=== PATIENT | female | born 1965 | race Caucasian/White ===

== ENCOUNTER 2021-01-03 15:43 | Outpatient (CLI) | payer OTHER, SELFPAY ==
--- NOTE | ~2021-01-03 | US_ITS ---
US retroperitoneal comp DATE: 01/03/2021 16:15 INDICATION: History of bilateral kidney stones TECHNIQUE: Real-time and color flow imaging of the kidneys and urinary bladder COMPARISON: 01/03/2021 KUB FINDINGS: The right kidney measures 9.1 cm length, without hydronephrosis. The left kidney measures approximately 10.2 cm length. Moderately prominent left hydronephrosis is noted. Possible bilateral renal calculi. The urinary bladder is unremarkable. IMPRESSION: Moderately prominent left hydronephrosis Reviewed, dictated and finalized at Location A. Reviewed, dictated and finalized at location A.
--- NOTE | ~2021-01-03 | XR_ITS ---
XR abdomen/kub 1V DATE: 01/03/2021 16:20 INDICATION: History of kidney stone. Hematuria. No pain. TECHNIQUE: AP projection, 2 views COMPARISON: 01/03/2021 retroperitoneal ultrasound examination FINDINGS: Calcific densities overlie the right and left renal silhouettes. There is a 4.5 x 9.9 mm calcification overlying the left ureter at the L4 level, possibly a left uret eral calcified calculus. Hydronephrosis of the left kidney is demonstrated on 01/03/2021 ultrasound ex amination. Approximately 3.8 cm calcified uterine fibroid. The bowel gas pattern is nonspecific, without evidence of obstruction. Included skeletal structures are unremarkable other than mild degenerative change and levoscoliosis o f the thoracolumbar spine. IMPRESSION: Possible 4.5 x 9.9 mm left ureteral calcified calculus at L4 level; left hydronephrosis Suggestion of bilateral renal calcified calculi; noncontrast CT abdomen pelvis examination would be m ore accurate for detection of urinary tract calculi. Reviewed, dictated and finalized at Location A. Reviewed, dictated and finalized at location A. IMPRESSION: Possible 4.5 x 9.9 mm left ureteral calcified calculus at L4 level; left hydronephrosis Suggestion of bilateral renal calcified calculi; noncontrast CT abdomen pelvis examination would be more accurate for detection of urinary tract calculi.
== END 2021-01-03 15:44 | disposition home or self-care (01) ==
PROVIDERS: PCP Emergency Medicine; Visit Provider Urology
DX: N20.0 Calculus of kidney (principal)
CPT/HCPCS: 74018; 76770

== ENCOUNTER 2021-02-15 13:54 | Outpatient (CLI) | payer OTHER, SELFPAY ==
--- NOTE | ~2021-02-15 | XR_ITS ---
XR abdomen/kub 1V 02/15/2021 14:19 Indication: Left ureteral stone. Hematuria. Procedure: KUB Comparison: 01/03/2021 Findings: There is a 9 x 5 mm calcification overlying the left L4 transverse process, likely ureteral stone. No significant change to position compared with prior study. There are bilateral renal stones . Bowel gas pattern is nonobstructive. There is moderate colonic fecal loading. There is a amorphous calcification in the pelvis, likely calcified uterine fibroid. Probable bone island in the left ilium . Impression: 1: Probable proximal left ureteral stone at the L4 level measuring 9 x 5 mm. 2: Bilateral nephrolithiasis. Reviewed, dictated and finalized at location A. Impression: 1: Probable proximal left ureteral stone at the L4 level measuring 9 x 5 mm. 2: Bilateral nephrolithiasis.
== END 2021-02-15 13:55 | disposition home or self-care (01) ==
PROVIDERS: PCP Emergency Medicine; Visit Provider Urology
DX: N20.2 Calculus of kidney with calculus of ureter (principal)
CPT/HCPCS: 74018

== ENCOUNTER 2021-02-26 13:19 | Outpatient (CLI) | payer OTHER, SELFPAY ==
--- NOTE | ~2021-02-26 | XR_ITS ---
EXAMINATION: XR chest 2V 02/26/2021 13:40 INDICATION: Preop. Asthma. PROCEDURE: 2 view chest COMPARISON: No prior studies for comparison. FINDINGS: The lungs are clear. The cardiomediastinal silhouette is within normal limits. There are no pleural effusions. There is no pneumothorax suspected. IMPRESSION: 1: NO ACUTE CARDIOPULMONARY DISEASE. Reviewed, dictated and finalized at location A. P TECHNOLOGIST
== END 2021-02-26 13:20 | disposition home or self-care (01) ==
PROVIDERS: PCP Emergency Medicine; Visit Provider Emergency Medicine
DX: Z01.818 Encounter for other preprocedural examination (principal); J45.909 Unspecified asthma, uncomplicated
CPT/HCPCS: 71046

== ENCOUNTER → 2021-03-03 02:43 | Outpatient (CLI) | payer OTHER, SELFPAY ==
[2021-03-03 18:23] LABS: SARS-CoV-2 RNA PCR Negative
== END ==
PROVIDERS: PCP Emergency Medicine; Visit Provider Urology
DX: Z01.812 Encounter for preprocedural laboratory examination (principal); Z20.822 Contact with and (suspected) exposure to COVID-19
CPT/HCPCS: C9803; U0003; U0005

== ENCOUNTER 2021-03-06 01:57 | Day surgery (SDC) | payer OTHER, SELFPAY ==
[2021-03-04 11:05] VITALS: BMI 31.6
--- NOTE | 2021-03-04 11:24 | PC.NURSE ---
Report to the Outpatient Waiting Room, entrance under the green pavilion located off [facility], at time __0845_ on date 03-06-21_. OR Time: ___1044_. - You and your visitor will be asked a series of questions to screen for COVID 19 for your protection. - A mask is required within the hospital. - Only one visitor is allowed at this time. Patient visitors will be guided where to wait when not with patient. Preoperative COVID Testing Requirements: No COVID Test needed if: (proof is required; if not received patient will have Rapid Test prior to entry) - Patient has received COVID Vaccine at least 14 days prior to procedure date or - Patient has positive COVID test result within last 90 days of surgery date. COVID Test needed if above criteria is not met If not COVID vaccinated a COVID test must be conducted within 72 hours of surgery and patient is asked to isolate self from time of testing until procedure. You will go to the [facility] for your COVID testing. The [facility] site is located at the corner of [address] [facility]. You will only be called if COVID results are positive and your surgeon may reschedule your elective surgery date. Patients may have clear liquids (water, carbonated beverages, clear teas, apple juice) until 3 hours prior to surgery with a maximum of 20 ounces. - No food from midnight until time of surgery - Infants may have breast milk until 4 hours before surgery, formula 6 hours prior to surgery. - Children will be allowed to drink immediately following surgery. If applicable, please bring a bottle or sippy cup to assist with drinking. Juice, water, soda, and popsicles are readily available. For infants on formula, please bring formula the day of surgery. Pacifiers are allowed. Take the following medications with a SIP of water the morning of surgery: Medications to discontinue per physician Date to take last dose Please no make-up, nail yi, hairspray, perfume, deodorant, or body powder the day of surgery. No jewelry (including any body piercings) or valuables the day of surgery, leave them at home. Please take a shower or bath the night before, or the morning of, surgery with an antibacterial soap. Wear comfortable, loose fitting clothing. Children are encouraged to wear pajamas. - Jewelry must be removed prior to entering the operating room. Rings and piercings that are not removed may be cut off. - The hospital will not accept responsibility for valuables. - Please leave all valuables, including medications, at home the day of surgery. If you are going home after surgery, a licensed trash collector truck driver must drive you home. - NO public transportation without another adult. - We recommend that an adult stay with you for 24 hours following discharge. - We also recommend that you do not drive, make important decision, drink alcoholic beverages, or take any drugs that were not prescribed by your health care provider for at least 24 hours after your discharge time. For Pediatric surgeries, we recommend two adults accompany the child home (only one inside the building at this time). Follow any additional instructions given to you from your surgeon. Telephone instructions given to __Patient__and asked if any additional questions and then verbalized understanding. Patient advised to call surgeon office or pre surgery nurse liaison [phone] if any additional questions.
[2021-03-06] VITALS (8 sets, daily range): BP systolic 97–146; BP diastolic 61–84; PULSE 60–121; RESP 12–20; TEMP 36.3–36.6; O2SAT 96–100
--- NOTE | ~2021-03-06 | XR_ITS ---
EXAMINATION: XR retrograde pyelo w/stent LT EXAM DATE: 03/06/2021 11:20 INDICATION: Left-sided stone extraction, retrograde pyelogram. TECHNIQUE: Fluoroscopy used during XR retrograde pyelo w/stent LT performed by Dr. King Paniagua MD, urologist. The radiologist Brice Oviedo M.D. dictating this report of the image(s) available wa s not present for the procedure. Total fluoroscopic time of 107 seconds. The DAP for this procedure was 1.9 mGym2. A total of 4 images sent to PACS from the exam. FINDINGS: Left ureter was cannulated, injected. There is left hydronephrosis. A double-J ureteral st ent was placed. Correlate with procedure note. IMPRESSION: Fluoroscopy used during XR retrograde pyelo w/stent LT. Reviewed, dictated and finalized at location B. IUM CARD CANCELLATION CLERK
[2021-03-06] MEDS: LACTATED RINGERS 1,000 ML 30 ML IV CONT ×2 (09:26→11:38)
--- NOTE | 2021-03-06 09:51 | P.PNAN_ITS ---
Anes - Initial Pre Proc Eval Procedure: Operation Date: 03/06/21 10:45 Proposed Procedures p Cystoscopy, Left Ureteroscopy with Left Ureteral Stone Extraction, Possible Left Stent Placement - King Paniagua MD s Laser Lithotripsy - King Paniagua MD Date/Time: 03/06/21 09:51 Surgeon: King Paniagua MD Pre Op Diagnosis: Lt Ureteral Stones Patient Data Age: 55 Gender: F Height: 1.6 m Weight: 80.9 kg Allergies Allergy/AdvReac Type Severity Reaction Status Date / Time latex Allergy Severe Anaphylactic Verified 03/04/21 11:38 Shock azithromycin Allergy Intermediate Difficulty Verified 03/04/21 11:38 [From Zithromax Z-Eloy] Breathing adhesive tape Allergy Mild Rash Verified 03/04/21 11:38 amoxicillin Allergy Mild Rash Verified 03/04/21 11:38 aspirin Allergy Mild Rash Verified 03/04/21 11:38 ibuprofen [From Motrin] Allergy Mild Itching Verified 03/04/21 11:02 codeine AdvReac Mild Nausea and Verified 03/04/21 11:38 Vomiting morphine AdvReac Mild Nausea and Verified 03/04/21 11:38 Vomiting Home Medications Medication Instructions Recorded Confirmed Type loratadine 10 mg tablet 10 mg PO DAILY 10/15/20 03/06/21 History melatonin 10 mg capsule 10 mg PO QHS 10/15/20 03/06/21 History cholecalciferol (vitamin D3) 125 mcg PO 3XW 03/04/21 03/06/21 History [Vitamin D3] d-mannose 500 mg PO DAILY 03/04/21 03/06/21 History vit A-vit C-vit [id number] [Eye 1 tablet PO DAILY 03/04/21 03/06/21 History Vitamin and Minerals] Patient hx anesthesia problems: none Family hx anesthesia problems: none Results Review: All pre-operative results and documents have been reviewed as part of the pre-operative evaluation. [facility] Past Medical History Medical History (Updated 03/06/21 @ 09:52 by Pravin Arceo MD) Anxiety Arthritis Asthma Insomnia Kidney stones Moderate left ankle sprain Sinus arrhythmia Family History Family History Other Arthritis Depression Diabetes mellitus Heart disease Hypertension Social History Social History Smoking status: Never smoker Alcohol intake: never Substance use: never Living arrangements: with family Gender identity (if verbalized by the patient): Female Spiritual care concerns: No Anes - Eval Final PreProcedure Day of Procedure 03/06/21 09:51 Patient weight: obese Heart: regular rate and rhythm Lungs: clear to auscultation Airway: Mallampati scale class 1 Neurological: alert and oriented Last oral intake: >/= 8 hours Emergent: no Anesthetic plan: proceed Anesthesia type and monitoring: general LMA and standard monitoring Results Review: All pre-operative results and documents have been reviewed as part of the pre-operative evaluation. Informed Consent: The patient's anesthetic plan and its attendant risks and benefits were discussed with the patient/family/POA. Questions were solicited and answers provided to the satisfaction of the patient/family/POA.
--- NOTE | 2021-03-06 10:09 | WPDHPUPDATE1 ---
History and Physical Update Update Date/Time: 03/06/21 10:09 History and Physical has been reviewed, including an updated exam of the patient. There are NO changes in the patient's condition. Risks, benefits, and alternatives have been discussed and questions answered. Patient agrees to proceed with procedure.
[2021-03-06] MEDS: ceFAZolin 2 GM/D5W 50 ML 2 GM/50 ML BAG IVPB (10:23)
--- NOTE | 2021-03-06 11:28 | W.PM.PROC2 ---
Procedure Note - Detailed Date of Procedure 03/06/21 Pre-op Diagnosis Lt Ureteral Stones Post-op Diagnosis same Procedure Performed Cystoscopy, left ureteroscopy laser lithotripsy, stone extraction, retrograde pyelogram and stent placement Surgeon King Paniagua MD Anesthesia general Description of Procedure The patient was brought to the operative suite where she is prepped and draped in a routine sterile fashion while in the dorsal lithotomy position after the uneventful induction of a general LMA anesthetic. A 19F rigid cystoscope was placed in the bladder. The patient had no evidence of urethral stricture or bladder neck contracture. The bladder mucosa was endoscopically normal without hyperemia or neoplasm. There was a single, orthotopic ureteral orifice bilaterally. A 0.035 glidewire was advanced into the left renal pelvis under fluoroscopy. The distal ureter was dilated with an 8F/10F ureteral dilator. Ureteroscopy was undertaken with a short tapered semi-rigid ureteroscope. With ureteroscopy I fractured the 9mm left mid-uretral stone into smaller pieces using a 273micron Holmium laser fiber with the Holmium laser with a dusting technique. I was able to then extract all stone pieces using a 1.9F Escape, Nitinol, disposable stone basket. Due to the extent of this manipulation I did place a 4.8F double-J ureteral stent. A retropyelogram was obtained to insure proper stent positioning. The proximal coil of the stent was confirmed to be in the renal pelvis and the distal coil in the bladder. The patient's bladder was emptied and he was taken to the recovery room having tolerated this procedure well. Estimated Blood Loss 0 Drains Yes Packing No Pathology yes Complications No immediate complications Condition stable Disposition PACU
--- NOTE | 2021-03-06 11:57 | SUR.PHASEI ---
PT AWAKE AND ALERT. TALKATIVE. DENIES PAIN OR NAUSEA. STATES MILD BURNING WITH URINATION ONLY.
--- NOTE | 2021-03-06 12:03 | SUR.PHASEI ---
PT AWAKE AND ALERT. READY TO TRANSFER TO [facility]. VERY TALKATIVE. ALL QUESTIONS ANSWERED
== END 2021-03-06 13:44 | disposition home or self-care (01) ==
PROVIDERS: PCP Emergency Medicine; Visit Provider Urology
PROC: (CPT 52352; principal; 2021-03-06 10:45)
PROC: (CPT 52356; 2021-03-06 10:45)
DX: N13.2 Hydronephrosis with renal and ureteral calculous obstruction (principal); E66.9 Obesity, unspecified; Z68.32 Body mass index [BMI] 32.0-32.9, adult
CPT/HCPCS: 52356; 74420; 82365; 88300; A9270; C1758; C1769; C2617; J0690; J1100; J1170; J1200; J2250; J2405; J2704; J3010; J7120; Q9966

== ENCOUNTER → 2021-07-11 14:35 | Outpatient (CLI) | payer OTHER, SELFPAY ==
--- NOTE | ~2021-07-11 | US_ITS ---
EXAMINATION: US renal BI DATE: 07/11/2021 15:00 INDICATION: Left renal stone TECHNIQUE: Multiple ultrasound grayscale images of the kidneys were obtained. COMPARISON: 01/03/2021 FINDINGS: The right kidney measures 8.0 x 3.8 x 4.4 cm. The left kidney measures 9.2 x 4.4 x 4.8 cm. The kidney s demonstrate normal echogenicity. There is no hydronephrosis in either kidney. No stones identified . The bladder is normal. IMPRESSION: 1. Normal kidneys without hydronephrosis. Reviewed, dictated and finalized at location A.
== END ==
PROVIDERS: Visit Provider Urology
DX: N20.1 Calculus of ureter (principal)
CPT/HCPCS: 76775

== ENCOUNTER 2021-07-29 10:18 | Outpatient (CLI) | payer OTHER, SELFPAY ==
[2021-07-29 10:52] LABS: Basophils Percent Auto 0.5 % (0.2-1.2); Eosinophils Absolute Auto 0.3 K/mm3 (0-0.3); Eosinophils Percent Auto 3.9 % (0-4.4); Hematocrit 43.6 % (37.0-47.0); Immature Granulocyte Absolute 0.01 K/mm3 (0.00-0.031); Immature Granulocyte Percent A 0.2 % (0-0.5); Lymphocytes Absolute Auto 1.75 K/mm3 (0.9-3.2); Mean Corpuscular HGB Conc 32.1 g/dl (32-36); Mean Corpuscular Hemoglobin 28.3 pg (26-34); Mean Corpuscular Volume 88.1 fl (80-100); Mean Platelet Volume 10.5 fl (7.4-10.4); Monocytes Absolute Auto 0.5 K/mm3 (0.1-0.6); Monocytes Percent Auto 7.7 % (2.6-8.5); Neutrophils Absolute Auto 3.9 K/mm3 (1.3-6.7); Neutrophils Percent Auto 60.7 % (45.5-73.1); Platelet Count Result 280 k/mm3 (150-375); Red Blood Count 4.95 M/mm3 (4.2-5.4); Red Cell Distribution Width 14.6 % (11.5-14.5); White Blood Count 6.5 K/mm3 (4.5-10.0)
[2021-07-29 11:10] LABS: Alanine Aminotransferase 39 U/L (4-35); Albumin Level 4.4 g/dL (3.5-5.1); Alkaline Phosphatase 99 U/L (38-126); Anion Gap 5 mmol/L (8-16); Aspartate Amino Transferase 37 U/L (14-36); Bilirubin,Total 0.3 mg/dL (0.2-1.3); Blood Urea Nitrogen 15 mg/dL (7-17); Carbon Dioxide 26 mmol/L (22-30); Chloride 103 mmol/L (98-107); Cholesterol 232 mg/dL (0-200); Estimated Glomerular Filt Rate 58; Glucose 94 mg/dL (65-110); HDL Direct 49 mg/dL; Sodium 134 mmol/L (137-145); Triglycerides 90 mg/dL (<150)
[2021-07-29 11:20] LABS: LDL Cholesterol Direct 122 mg/dL
[2021-07-29 11:22] LABS: Erythrocyte Sedimentation Rate 18 mm/hr (0-20)
[2021-08-02 11:23] LABS: CRP, High Sensitivity 4.2 mg/L (***)
== END 2021-07-29 10:19 | disposition home or self-care (01) ==
LOC: ANHLAB 10:20
PROVIDERS: PCP Internal Medicine; Visit Provider Internal Medicine
DX: R51.9 Headache, unspecified (principal); E78.5 Hyperlipidemia, unspecified
CPT/HCPCS: 36415; 80053; 80061; 85025; 85652; 86141

== ENCOUNTER 2021-08-29 13:06 | Outpatient (CLI) | payer OTHER, SELFPAY ==
--- NOTE | 2021-08-29 | ECG_ITS ---
Measurements Intervals [place] Rate: 100 P: 35 MA: 140 QRS: 6 QRSD: 89 T: 33 QT: 343 QTc: 443 Interpretive Statements SINUS TACHYCARDIA BORDERLINE R WAVE PROGRESSION, ANTERIOR LEADS BORDERLINE T WAVE ABNORMALITY- ANTEROLAT/INF LEADS BORDERLINE ECG Electronically Signed On 08-29-2021 13:38:09 CDT by Jeovanny Sinha D.O.
== END 2021-08-29 13:07 | disposition home or self-care (01) ==
LOC: ANHCARD 13:09
PROVIDERS: PCP Internal Medicine; Visit Provider Internal Medicine
DX: R94.31 Abnormal electrocardiogram [ECG] [EKG] (principal)
CPT/HCPCS: 93005

== ENCOUNTER 2022-04-17 11:12 | Outpatient (CLI) | payer OTHER, SELFPAY ==
--- NOTE | ~2022-04-17 | US_ITS ---
Thyroid ultrasound. Clinical History: Thyroid nodules Findings: Real-time sonography of the thyroid gland was performed. The right lobe measures 5.2 x 1.7 x 1.4 cm. The left lobe measures 5.2 x 1.4 x 1.0 cm. The isthmus is 2 mm in AP diameter. There is an 8 mm cystic right thyroid lobe nodule with focal, colloid material at the midpole. There is a 9 mm hypoechoic solid nodule at the posterior right midpole, wider than tall. There is a 7 mm mixed solid and cystic nodule at the left mid to lower pole. Impression: Subcentimeter thyroid nodules, as detailed above. No further follow-up required.. Reviewed, dictated and finalized at location . FIC RATE CLERK Impression: Subcentimeter thyroid nodules, as detailed above. No further follow-up required ..
== END 2022-04-17 11:13 | disposition home or self-care (01) ==
PROVIDERS: PCP Internal Medicine; Visit Provider Internal Medicine
DX: E04.2 Nontoxic multinodular goiter (principal)
CPT/HCPCS: 76536

== ENCOUNTER 2022-04-21 09:58 | Outpatient (CLI) | payer OTHER, SELFPAY ==
--- NOTE | 2022-04-21 | ECHO_ITS ---
Patient Info Name: Rhea Lawrence Age: 56 years : 1965 Gender: Female Ht: 63 in Wt: 163 lbs BSA: 1.84 m2 HR: 98 bpm BP: 113 / 85 mmHg Heart Rhythm: Sinus Rhythm Exam Date: 04/21/2022 10:29 AM Exam Location: [facility] Patient Status: Outpatient Admit Date: 04/21/2022 Staff Ordering Physician: Reji, Kingston Trujillo MD Customer Relations Representative: Santosh Gao RDCS Attending Provider: Jay, Kingston Trujillo MD Referring Physician: Reji DENG; Exam Type: CA echo doppler color flow Study Info Indications I10 - Essential (primary) hypertension Complete two-dimensional, color flow and Doppler transthoracic echocardiogram is performed. Summary 1. Complete two-dimensional, color flow and Doppler transthoracic echocardiogram is performed. 2. Left ventricular chamber dimension is normal. 3. Left ventricular systolic function is normal, estimated at 60-65%. 4. The left ventricular diastolic function is grade I diastolic dysfunction. 5. Right ventricular systolic function is normal. 6. There is mild mitral valve regurgitation. 7. There is mild tricuspid valve regurgitation. Left Ventricle Left ventricular chamber dimension is normal. Left ventricular systolic function is normal, estimated at 60-65%. There is no increased left ventricular wall thickness. The left ventricular diastolic function is grade I diastolic dysfunction. Right Ventricle Right ventricular chamber dimension is normal. Right ventricular systolic function is normal. Left Atria Left atrial chamber dimension is normal. Right Atria Right atrial chamber dimension is normal. Atrial Septum Intact interatrial septum visualized by color flow imaging. Aortic Valve The aortic valve is trileaflet. There is no aortic valve stenosis. There is no aortic valve regurgitation. Pulmonic Valve The pulmonic valve is not well visualized. Mitral Valve The mitral valve has normal leaflets. There is mild mitral valve regurgitation. Tricuspid Valve The tricuspid valve leaflets are normal. There is mild tricuspid valve regurgitation. Pericardium/Pleural There is trivial pericardial effusion. Inferior Vena Cava Normal inferior vena cava with >50% collapse upon inspiration consistent with normal right atrial pressure. Aorta The aortic root size at the sinus of Valsalva is normal. Left Ventricular Outflow Tract Name Value Normal LVOT 2D LVOT Diameter 2.0 cm LVOT Doppler LVOT Peak Gradient 3 mmHg LVOT Mean Gradient 2 mmHg LVOT VTI 18 cm LVOT VTI/AV VTI Ratio 0.8 LVOT Stroke Volume 56 ml LVOT CO 4.0 l/min LVOT CI 2.2 l/min/m2 Mitral Valve Name Value Normal MV Doppler
== END 2022-04-21 09:59 | disposition home or self-care (01) ==
LOC: ANHCARD 10:00
PROVIDERS: PCP Internal Medicine; Visit Provider Internal Medicine Cardiovascular Disease
DX: I10 Essential (primary) hypertension (principal); R07.2 Precordial pain
CPT/HCPCS: 93306

== ENCOUNTER 2022-05-04 08:06 | Outpatient (CLI) | payer OTHER, SELFPAY ==
--- NOTE | 2022-06-02 13:46 | WPDHOMESLEEP ---
Sleep Study - Home Unattended Date of Study: 05/04/22 Ordering Provider: Opal Camara MD Interpreting Provider: Layne Hawk, DO Home Sleep Study Type: Watch PAT Height: 1.6 m Weight: 76.204 kg Body Mass Index: 29.7 Neck Circumference (inches): 13.5 [place]: 6 Reason for Sleep Study Insomnia Sleep History The patient is a 57-year-old female with insomnia, asthma, scoliosis, hyperlipidemia, GERD, anxiety and hypothyroidism that had a sleep study ordered by her primary care physician for evaluation of insomnia. The patient rarely awakens from sleep short of breath. She occasionally awakens at night with heartburn and coughing. She rarely snores and is never loud enough others complain. She frequently has trouble sleeping when she has a cold. She denies waking up gasping for air throughout the night. She denies having breathing problems at night observed by herself or others. She occasionally sweats excessively at night. She denies having heart palpitations or irregular heartbeats during the night. She rarely falls asleep during the day and never while driving. She denies sleep paralysis, cataplexy and hypnagogic / hypnopompic hallucinations. She frequently has trouble at work due to sleepiness. She denies feeling afraid of going to sleep. She rarely has nightmares and rarely remembers her dreams. She rarely has thoughts racing through her mind. She occasionally feels sad or depressed. She frequently has anxiety. She occasionally has muscular tension. She denies noticing parts of her body jerk. She denies kicking during the night. She denies having crawling and aching feelings in her legs as well as leg pain during the night. She rarely grinds her teeth during sleep but never awakens with morning jaw pain. She is frequently bothered by pain during the day but rarely awakened by pain during the night. She frequently wakes up feeling stiff in the morning. She denies waking up with sore achy muscles. She denies waking up with pain in the neck, spine and other joints. She goes to bed 11 p.m. on both weekdays and weekends. It can take her 30 minutes up to several hours to fall asleep. She wakes up 3-5 times throughout the night for unknown reasons. Sometimes she is unable fall asleep she wakes up 720 on weekdays and at 8:20 a.m. on the weekends. She typically gets 4-6 hours of sleep per night. She will stay in bed for a few minutes after waking up in the morning. She currently lives with her and 2 children. She denies consuming any caffeinated beverages within 2 hours of bedtime. She denies engaging in physical exercise before bedtime. She will watch television before falling asleep. She denies taking naps in the afternoon or the evening. She denies consuming caffeinated beverages throughout the day. She denies tobacco, alcohol and recreational drug use. [facility] Past Medical History Medical History (Updated 06/02/22 @ 13:59 by Layne Hawk DO) Anxiety Arthritis Asthma Inflammation of foot due to trauma Insomnia Kidney stones Moderate left ankle sprain Sinus arrhythmia Tendinitis of both feet Family History Family History Other Arthritis Depression Diabetes mellitus Heart disease Hypertension Social History Social History Smoking status: Never smoker Alcohol intake: never Substance use: never Living arrangements: with family Gender identity (if verbalized by the patient): Female Spiritual care concerns: No Medications Home Medications Medication Instructions Recorded Confirmed Type loratadine 10 mg tablet (Claritin) 10 mg PO DAILY 10/15/20 04/21/22 History melatonin 10 mg capsule 10 mg PO QHS 10/15/20 04/21/22 History cholecalciferol (vitamin D3) 125 125 mcg PO 3XW 03/04/21 04/21/22 History mcg (5,000 unit) tablet (Vitamin D3) horacio
[2022-06-02 13:55] VITALS: BMI 29.7
== END 2022-05-12 16:13 | disposition home or self-care (01) ==
LOC: ANHCSM 08:09
PROVIDERS: PCP Internal Medicine; Visit Provider Internal Medicine
DX: G47.00 Insomnia, unspecified (principal); G47.34 Idiopathic sleep related nonobstructive alveolar hypoventilation
CPT/HCPCS: 95800

== ENCOUNTER 2022-05-09 10:00 | Outpatient (CLI) | payer OTHER, SELFPAY ==
--- NOTE | ~2022-05-09 | DEXA_ITS ---
Bone Density Report Name: AFIA ADAMS Age: 56 Sex: Female Ethnicity: Hoa Date of : 1965 Indication: postmenopausal; screening for osteoporosis; Referring Provider: KENNEY NEVILLE Study: Bone densitometry was performed. Exam Date: May 09, 2022 Accession number: [id number] Bone Density: Region BMD T-score Z-score Classification AP Spine(L1-L4) 1.022 -0.2 0.8 Normal Femoral Neck (Left) 0.800 -0.4 0.6 Normal Total Hip (Left) 0.973 0.3 0.9 Normal Femoral Neck (Right) 0.817 -0.3 0.8 Normal Total Hip (Right) 0.978 0.3 1.0 Normal Total Hip Mean 0.976 0.3 1.0 Normal World Health Organization criteria for BMD impression classify patients as: Normal (T-score at or above -1.0), Osteopenia (T-score between -1.0 and -2.5), or Osteoporosis (T-score at or below -2.5). 10-year Fracture Risk: FRAX not reported because: All T-scores for Spine Total, Hip Total, Femoral Neck at or above -1.0 Clinical Information Provided by Patient: Has used the following medications: Vitamin D Patient maximum height was 63 Menopause Age: 52 Does not regularly consume dairy products Onset of menses at age 13 Number of children 0 Impression: The patient has normal bone mass. Discussion: BONE DENSITY IS ABOVE THE MINIMUM DESIRABLE LEVEL AT ALL SKELETAL SITES TESTED. This patient?s bone mineral density is above the minimum desirable level (T-score -1.0 or better) at all sites measured. The patient should follow a healthful lifestyle (good nutrition with adequate calcium and vitamin D, and appropriate weight-bearing exercise). Follow-Up: Consider repeating this study in 5 years or sooner if there is some new clinical indication. Reported by: AFSHAN on 05/09/2022 10:24:00 AM. Reviewed, dictated and finalized at location APhillip HAN
== END 2022-05-09 10:01 | disposition home or self-care (01) ==
PROVIDERS: PCP Internal Medicine; Visit Provider Internal Medicine
DX: Z78.0 Asymptomatic menopausal state (principal)
CPT/HCPCS: 77080

== ENCOUNTER 2022-08-28 16:31 | Outpatient (CLI) | payer OTHER, SELFPAY ==
[2022-08-28 17:13] LABS: Appearance Urine Clear (Clear); Bacteria Urine None Seen /hpf; Bilirubin Urine Negative (Negative); Blood Urine Negative (Negative); Color Urine Yellow (Yellow); Glucose Urine UA Negative (Negative); Ketones Urine Negative (Negative); Leukocyte Esterase Ur Trace LEU/UL (NEGATIVE); Leukocyte Esterase Ur Trace LEU/UL (Negative); Nitrate Urine Negative (Negative); Non Pathogenic Casts 0-2; Protein Urine Negative (Negative); RBC Urine 0-2 /hpf (0-2); Specific Grav Ur 1.009 (1.001-1.035); Squamous Epithelial Cell Urine None seen /hpf (Few); Urobilinogen Urine 0.2 mg/dL (<2.0); WBC Urine 0-5 /hpf; WBC Urine 0-5 /hpf (0-3)
[2022-08-28 17:17] LABS: Creatinine Urine 55.7 mg/dL; Total Protein Urine Random 8 mg/dL; Ur Ttl Prot Creatinine Ratio 0.14 mg/mg (0-0.20)
[2022-08-28 17:21] LABS: Albumin Level 4.5 g/dL (3.5-5.1); Anion Gap 7 mmol/L (8-16); Blood Urea Nitrogen 15 mg/dL (7-17); Calcium 9.3 mg/dL (8.4-10.2); Carbon Dioxide 31 mmol/L (22-30); Chloride 101 mmol/L (98-107); Estimated Glomerular Filt Rate > 60; Glucose 85 mg/dL (65-110); Phosphorus 4.3 mg/dL (2.5-4.5); Potassium 3.8 mmol/L (3.4-5.0); Sodium 139 mmol/L (137-145)
[2022-08-28 17:30] LABS: Add Urine Microscopic? YES
[2022-09-02 13:22] LABS: CRP, High Sensitivity 2.9 mg/L (***)
== END 2022-08-28 16:32 | disposition home or self-care (01) ==
PROVIDERS: PCP Internal Medicine; Visit Provider Internal Medicine Nephrology
DX: N20.0 Calculus of kidney (principal); R30.0 Dysuria
CPT/HCPCS: 36415; 80069; 81001; 82570; 84156; 86141

== ENCOUNTER 2022-10-19 10:35 | Outpatient (CLI) | payer OTHER, SELFPAY ==
--- NOTE | ~2022-10-19 | US_ITS ---
EXAMINATION: US thyroid DATE: 10/19/2022 11:02 INDICATION: Thyroid nodules. TECHNIQUE: Multiple ultrasound images of the thyroid were obtained. COMPARISON: Ultrasound 04/17/2022 FINDINGS: The right thyroid lobe measures 5.1 x 1.8 x 2.0 cm. The left thyroid lobe measures 5.4 x 1.7 x 1.6 c m. In the right thyroid lobe, there is a 9 mm solid, hypoechoic, wider than tall nodule with smooth margin without echogenic foci (TI-RADS TR4). In the right thyroid lobe, there is a 7 mm almost comple tely cystic nodule (TR1). In the left thyroid lobe, there is a 6 mm mixed solid and cystic, hypoechoi c, wider than tall nodule with smooth margin without echogenic foci (TR3). IMPRESSION: 1. Small thyroid nodules, likely not clinically significant. No follow-up is needed. Reviewed, dictated and finalized at location A. IMPRESSION: 1. Small thyroid nodules, likely not clinically significant. No follow-up is ne eded.
== END 2022-10-19 10:36 | disposition home or self-care (01) ==
PROVIDERS: PCP Internal Medicine; Visit Provider Internal Medicine
DX: E04.2 Nontoxic multinodular goiter (principal)
CPT/HCPCS: 76536

== ENCOUNTER 2023-04-23 16:42 | Outpatient (CLI) | payer OTHER, SELFPAY ==
--- NOTE | ~2023-04-23 | US_ITS ---
EXAMINATION: US thyroid DATE: 04/23/2023 17:14 INDICATION: Multinodular goiter. TECHNIQUE: Multiple ultrasound images of the thyroid were obtained. COMPARISON: Ultrasound 10/19/2022 FINDINGS: The right thyroid lobe measures 4.9 x 1.8 x 1.8 cm. The left thyroid lobe measures 5.5 x 1.5 x 1.6 c m. In the right thyroid lobe, there is a 5 mm solid, hypoechoic, wider than tall nodule with smooth m argin without echogenic foci (TI-RADS TR4). In the right thyroid lobe, there is an 8 mm predominantly cystic nodule (TR1). In the left thyroid lobe, there is a 6 mm solid, hypoechoic, wider than tall no dule with smooth margin without echogenic foci (TR4). IMPRESSION: 1. Small thyroid nodules, likely not clinically significant. No follow-up is needed. Reviewed, dictated and finalized at location E. ING UNIT MANAGER IMPRESSION: 1. Small thyroid nodules, likely not clinically significant. No follow-up is ne eded.
== END 2023-04-23 16:43 | disposition home or self-care (01) ==
PROVIDERS: PCP Internal Medicine; Visit Provider Pediatrics Pediatric Cardiology
DX: E04.2 Nontoxic multinodular goiter (principal)
CPT/HCPCS: 76536

== ENCOUNTER → 2023-05-07 11:21 | Outpatient (CLI) | payer OTHER, SELFPAY ==
--- NOTE | ~2023-05-07 | US_ITS ---
EXAMINATION: US venous doppler [facility] DATE: 05/07/2023 12:00 INDICATION: Bilateral lower limb pain TECHNIQUE: Grayscale ultrasound images without and with compression and Doppler ultrasound images of the bilateral lower extremity veins were obtained. COMPARISON: None. FINDINGS: The visualized portions of right common femoral vein, profunda (deep) femoral vein, femoral vein, pop liteal vein, posterior tibial veins, peroneal veins, soleal vein, gastrocnemius vein and greater saph enous vein outflow are patent. The visualized portions of left common femoral vein, profunda femoral vein, femoral vein, popliteal v ein, posterior tibial veins, peroneal veins, gastrocnemius vein, soleal vein and greater saphenous ve in outflow are patent. IMPRESSION: 1. No deep venous thrombosis in either lower limb. Reviewed, dictated and finalized at location A. NI RELATIONS MANAGER
== END ==
PROVIDERS: PCP Internal Medicine; Visit Provider Internal Medicine
DX: M79.662 Pain in left lower leg (principal)
CPT/HCPCS: 93970

== ENCOUNTER 2023-05-08 09:43 | Outpatient (CLI) | payer OTHER, SELFPAY ==
[2023-05-08 10:08] LABS: Basophils Percent Auto 0.7 % (0.2-1.2); Eosinophils Absolute Auto 0.3 K/mm3 (0-0.3); Eosinophils Percent Auto 4.5 % (0-4.4); Hematocrit 44.6 % (37.0-47.0); Immature Granulocyte Absolute 0.01 K/mm3 (0.00-0.031); Immature Granulocyte Percent A 0.2 % (0-0.5); Lymphocytes Absolute Auto 2.14 K/mm3 (0.9-3.2); Lymphocytes Percent Auto 38.4 % (18.3-44.2); Mean Corpuscular HGB Conc 31.4 g/dl (32-36); Mean Corpuscular Hemoglobin 27.7 pg (26-34); Mean Corpuscular Volume 88.3 fl (80-100); Mean Platelet Volume 11.9 fl (7.4-10.4); Monocytes Absolute Auto 0.4 K/mm3 (0.1-0.6); Monocytes Percent Auto 7.7 % (2.6-8.5); Neutrophils Absolute Auto 2.7 K/mm3 (1.3-6.7); Neutrophils Percent Auto 48.5 % (45.5-73.1); Platelet Count Result 321 k/mm3 (150-375); Red Blood Count 5.05 M/mm3 (4.2-5.4); Red Cell Distribution Width 14.4 % (11.5-14.5); White Blood Count 5.6 K/mm3 (4.5-10.0)
[2023-05-08 10:22] LABS: Alanine Aminotransferase 28 U/L (6-35); Albumin Level 4.3 g/dL (3.5-5.1); Alkaline Phosphatase 77 U/L (38-126); Anion Gap 5 mmol/L (8-16); Aspartate Amino Transferase 31 U/L (14-36); Bilirubin,Total 0.4 mg/dL (0.2-1.3); Blood Urea Nitrogen 10 mg/dL (7-17); CRP < 0.5 mg/dL (<1.0); Calcium 9.4 mg/dL (8.4-10.2); Carbon Dioxide 28 mmol/L (22-30); Chloride 107 mmol/L (98-107); Cholesterol 202 mg/dL (0-200); Estimated Glomerular Filt Rate 58; Glucose 92 mg/dL (65-110); HDL Direct 59 mg/dL; Sodium 140 mmol/L (137-145); Triglycerides 82 mg/dL (<150)
[2023-05-08 10:31] LABS: LDL Cholesterol Direct 101 mg/dL
[2023-05-08 10:55] LABS: Vitamin D 25 Hydroxy 91.4 ng/mL
[2023-05-11 09:43] LABS: CRP, High Sensitivity 2.1 mg/L (***)
== END 2023-05-08 09:44 | disposition home or self-care (01) ==
LOC: ANHLAB 09:45
PROVIDERS: PCP Internal Medicine; Visit Provider Internal Medicine
DX: Z00.00 Encounter for general adult medical examination without abnormal findings (principal); E78.5 Hyperlipidemia, unspecified; M19.049 Primary osteoarthritis, unspecified hand; R53.83 Other fatigue; Z13.21 Encounter for screening for nutritional disorder
CPT/HCPCS: 36415; 80053; 80061; 82306; 85025; 86140; 86141

== ENCOUNTER 2023-10-07 16:46 | Outpatient (CLI) | payer OTHER, SELFPAY ==
--- NOTE | ~2023-10-07 | US_ITS ---
EXAMINATION: US renal BI DATE: 10/07/2023 17:20 INDICATION: Nephrolithiasis TECHNIQUE: Multiple ultrasound grayscale images of the kidneys were obtained. COMPARISON: None. FINDINGS: The right kidney measures 10.2 x 5.7 x 5.9 cm. The left kidney measures 10.9 x 5.0 x 4.9 cm. The kidn eys demonstrate normal echogenicity. There is moderate hydronephrosis at the right kidney. There are hyperechoic regions at the periphery of the calyces of the right kidney with twinkle artifact on colo r Doppler imaging. The lack of significant posterior acoustic shadowing and nondependent positioning suggests this may represent medullary nephrocalcinosis as opposed to renal stones. There is no hydron ephrosis in the left kidney. The bladder is normal with bilateral ureteral jets visualized on color D oppler. IMPRESSION: 1. Moderate right hydronephrosis. Would recommend further evaluation with either KUB or renal stone CT to assess for potential distal obstructing stone. 2. Hyperechoic regions truncal artifact but without posterior acoustic shadowing at the periphery of the dilated right renal calyces. The lack of shadowing in the nondependent position suggests this cou ld represent nephrocalcinosis as opposed to renal stones. This could be better differentiated with CT . Reviewed, dictated and finalized at location A. IMPRESSION: 1. Moderate right hydronephrosis. Would recommend further evaluation with [facility] KUB or renal stone CT to assess for potential distal obstructing stone. 2. Hyperechoic regions truncal artifact but without posterior acoustic shadowin g at the periphery of the dilated right renal calyces. The lack of shadowing in the nondependent position suggests this could represent nephrocalcinosis as op posed to renal stones. This could be better differentiated with CT.
== END 2023-10-07 16:47 | disposition home or self-care (01) ==
LOC: ANHIMG 16:46
PROVIDERS: PCP Internal Medicine; Visit Provider Internal Medicine Nephrology
DX: N20.0 Calculus of kidney (principal)
CPT/HCPCS: 76775

== ENCOUNTER 2023-10-08 13:01 | Outpatient (CLI) | payer OTHER, SELFPAY ==
--- NOTE | ~2023-10-08 | XR_ITS ---
EXAMINATION: XR abdomen/kub 1V DATE: 10/08/2023 13:12 INDICATION: Right hydronephrosis. TECHNIQUE: A supine view of the abdomen on 2 radiographs was obtained. COMPARISON: Abdomen radiographs 02/15/2021 FINDINGS: There are no dilated loops of bowel. The kidneys are obscured by bowel. There is a calcifie d fibroid uterus. There are right pelvic calcifications. IMPRESSION: 1. Calcifications in right pelvis, which may be phleboliths and/or distal ureteral stones. Consider n oncontrast CT abdomen and pelvis. Reviewed, dictated and finalized at location A. IMPRESSION: 1. Calcifications in right pelvis, which may be phleboliths and/or distal urete ral stones. Consider noncontrast CT abdomen and pelvis.
== END 2023-10-08 13:02 | disposition home or self-care (01) ==
LOC: ANHIMG 13:02
PROVIDERS: PCP Internal Medicine; Visit Provider Internal Medicine Nephrology
DX: N20.0 Calculus of kidney (principal); N13.30 Unspecified hydronephrosis
CPT/HCPCS: 74018

== ENCOUNTER 2023-10-08 16:07 | Outpatient (CLI) | payer OTHER, SELFPAY ==
--- NOTE | ~2023-10-08 | CT_ITS ---
EXAMINATION: CT abdomen pelvis wo con DATE: 10/08/2023 16:44 INDICATION: Nephrolithiasis with right hydronephrosis TECHNIQUE: Computed tomography (CT) of the abdomen and pelvis was performed without intravenous contr ast. Automated exposure control and iterative reconstruction technique were employed. The dose-length product was 361.72 mGy-cm. COMPARISON: KUB dated 10/08/2023 FINDINGS: Lung bases are clear. Heart size is normal. No pericardial or pleural effusion. 12 mm cyst in the lef t hepatic lobe. Gallbladder, spleen, pancreas, bilateral adrenal glands, left kidney and ureter are n ormal. There is right nephrolithiasis with 5 stones in the right kidney measuring up to 3-4 mm. There is moderate right hydroureter extending to a pair of distal ureteral stones, the more caudal measuri ng 8 x 4 x 5 mm in the more cephalad measuring 6 x 3 x 3 mm . These are located approximately 3 cm ab ove level of the ureterovesicular junction. Stippled pattern of cavitation within an 8 cm fibroid in the posterior uterine body. Bladder and bilateral adnexa are unremarkable. No free intraperitoneal ga s or fluid. No pathologically enlarged abdominal or pelvic lymphadenopathy. Severe spondylosis at the lumbosacral junction. The amount in the left innominate bone. IMPRESSION: 1. Right nephrolithiasis with moderate right hydroureteronephrosis resulting from a pair of stones in the distal right ureter. These are visible and have been marked on the prior radiograph. 2. 8 cm uterine fibroid. Reviewed, dictated and finalized at location A. IMPRESSION: 1. Right nephrolithiasis with moderate right hydroureteronephrosis resulting fr om a pair of stones in the distal right ureter. These are visible and have been marked on the prior radiograph. 2. 8 cm uterine fibroid.
== END 2023-10-08 16:08 | disposition home or self-care (01) ==
LOC: ANHIMG 16:10
PROVIDERS: PCP Internal Medicine; Visit Provider Internal Medicine Nephrology
DX: N13.30 Unspecified hydronephrosis (principal); N20.0 Calculus of kidney; D25.9 Leiomyoma of uterus, unspecified
CPT/HCPCS: 74018; 74176

== ENCOUNTER 2023-11-08 09:10 | Outpatient (CLI) | payer OTHER, SELFPAY | END 2023-11-08 09:11 | disposition home or self-care (01) | PROVIDERS: PCP Internal Medicine | DX: N20.0 Calculus of kidney (principal) | CPT/HCPCS: 87086 ==

== ENCOUNTER 2023-11-08 17:01 | Outpatient (CLI) | payer OTHER, SELFPAY ==
--- NOTE | ~2023-11-08 | XR_ITS ---
EXAM: XR abdomen/kub 1V DATE: 11/08/2023 17:16 HISTORY: KIDNEY STONE X 2 RIGHT SIDE . COMPARISON: 10/08/2023; CT abdomen pelvis 10/08/2023. FINDINGS: Normal bowel gas pattern. No organomegaly. Calcified uterine fibroid. Unchanged multiple c alcifications in the distal right ureter. Regional bones and soft tissues normal for age. IMPRESSION: Unchanged distal right ureteral calcifications. Reviewed, dictated and finalized at location K.
== END 2023-11-08 17:02 | disposition home or self-care (01) ==
LOC: ANHIMG 17:03
PROVIDERS: PCP Internal Medicine
DX: N20.1 Calculus of ureter (principal)
CPT/HCPCS: 74018; 87086

== ENCOUNTER 2024-01-24 12:52 | Outpatient (CLI) | payer OTHER, SELFPAY ==
--- NOTE | ~2024-01-24 | US_ITS ---
US renal BI Ordering provider: David Isaac MD History: . Calculus of kidney . Comparison: None. Technique: Ultrasound bilateral kidneys. Findings: RIGHT KIDNEY: Measures 11.4x 5.7x 5.5 cm in length which is normal in size. No renal cysts. No renal mass or visualized echogenic stones. Otherwise, normal echotexture and contour. No hydronephrosis. No rmal renal cortical thickness. LEFT KIDNEY: Measures 9.5x 4.4x 5.3 cm in length which is normal in size. No renal cysts. No renal ma ss or visualized echogenic stones. Otherwise, normal echotexture and contour. No hydronephrosis. Norm al renal cortical thickness. BLADDER: Normal. IMPRESSION: No definite abnormality seen. Reviewed, dictated and finalized at location A.
== END 2024-01-24 12:53 | disposition home or self-care (01) ==
PROVIDERS: PCP Internal Medicine Nephrology
DX: N20.0 Calculus of kidney (principal)
CPT/HCPCS: 76775

== ENCOUNTER 2024-05-05 11:55 | Outpatient (CLI) | payer OTHER, SELFPAY ==
--- NOTE | ~2024-05-05 | US_ITS ---
EXAMINATION: US thyroid DATE: 05/05/2024 12:12 INDICATION: Thyroid nodules. TECHNIQUE: Multiple ultrasound images of the thyroid were obtained. COMPARISON: Thyroid ultrasound 04/23/2023 FINDINGS: The right thyroid lobe measures 5.0 x 1.9 x 1.8 cm. The left thyroid lobe measures 5.8 x 1.7 x 1.7 c m. In the right thyroid lobe, there is an 8 mm almost early cystic nodule (TI-RADS TR1). In the righ t thyroid lobe, there is a 4 mm nodule. In the left thyroid lobe, there is a 5 mm solid, hypoechoic, wider than tall nodule with smooth margin without echogenic foci (TR4). IMPRESSION: 1. Small thyroid nodules, likely not clinically significant. No follow-up is needed. Reviewed, dictated and finalized at location A. ON BRUSHES ASSEMBLER IMPRESSION: 1. Small thyroid nodules, likely not clinically significant. No follow-up is ne eded.
== END 2024-05-05 11:56 | disposition home or self-care (01) ==
LOC: MICIMG 11:56
PROVIDERS: PCP Internal Medicine; Visit Provider Internal Medicine
DX: E04.2 Nontoxic multinodular goiter (principal)
CPT/HCPCS: 76536

== ENCOUNTER 2024-09-29 13:56 | Outpatient (CLI) | payer OTHER, SELFPAY ==
--- NOTE | ~2024-09-29 | US_ITS ---
US renal BI 09/29/2024 14:17 Procedure: Realtime transabdominal ultrasound of the kidneys and bladder. Indication: Kidney stone Comparison: Renal ultrasound dated 01/24/2024 Findings: Renal echotexture is normal bilaterally without hydronephrosis, contour deforming mass or r enal calculus. The right kidney measures 11.4 cm and left kidney measures 9.5 cm. Bladder within nor mal limits. Impression: 1: Unremarkable renal ultrasound. No stones, masses or hydronephrosis. Reviewed, dictated and finalized at location B. Impression: 1: Unremarkable renal ultrasound. No stones, masses or hydronephrosis.
== END 2024-09-29 13:57 | disposition home or self-care (01) ==
LOC: MICIMG 13:56
PROVIDERS: PCP Internal Medicine Nephrology
DX: N20.0 Calculus of kidney (principal)
CPT/HCPCS: 76775

== ENCOUNTER 2024-11-17 09:25 | Outpatient (CLI) | payer BC, SELFPAY ==
--- NOTE | ~2024-11-17 | XR_ITS ---
EXAM: XR wrist LT min 3V, XR wrist RT min 3V DATE: 11/17/2024 09:47 HISTORY: Pain in right/left wrist . COMPARISON: None available. FINDINGS: Normal mineralization. No fracture or dislocation. No lytic or blastic lesion. Mild degene rative change in the bilateral triscaphe joints. Mild left and moderate right first CMC joint degener ative change. No erosion or periosteal change. Soft tissues within normal limits. IMPRESSION: Polyarticular osteoarthritis of the wrists. Reviewed, dictated and finalized at location K. IMPRESSION: Polyarticular osteoarthritis of the wrists.
== END 2024-11-17 09:26 | disposition home or self-care (01) ==
PROVIDERS: PCP Internal Medicine; Visit Provider Internal Medicine
DX: M19.032 Primary osteoarthritis, left wrist (principal); M19.031 Primary osteoarthritis, right wrist
CPT/HCPCS: 73110

== ENCOUNTER 2025-04-13 11:14 | Outpatient (CLI) | payer BC, SELFPAY ==
--- NOTE | ~2025-04-13 | US_ITS ---
EXAMINATION: US thyroid DATE: 04/13/2025 11:30 INDICATION: Multinodular goiter. TECHNIQUE: Multiple ultrasound images of the thyroid were obtained. COMPARISON: Ultrasound 05/05/2024 FINDINGS: The right thyroid lobe measures 5.3 x 2.1 x 1.7 cm. The left thyroid lobe measures 5.5 x 1.5 x 1.5 cm. In the right thyroid lobe, there is a 10 mm most entirely cystic nodule (TI-RADS TR1). In the right thyroid lobe, there is a 6 mm solid, hypoechoic, wider than tall nodule with smooth margin without echogenic foci (TR4). In the left thyroid lobe, there is a 5 mm solid, hypoechoic, wider than tall nodule with ill-defined margin without echogenic foci (TR4). IMPRESSION: 1. Small thyroid nodules, likely not clinically significant. No follow-up is needed. Reviewed, dictated and finalized at location E. ATION DIRECTOR IMPRESSION: 1. Small thyroid nodules, likely not clinically significant. No follow-up is ne eded.
== END 2025-04-13 11:15 | disposition home or self-care (01) ==
LOC: MICIMG 11:15
PROVIDERS: PCP Internal Medicine; Visit Provider Internal Medicine Endocrinology, Diabetes & Metabolism
DX: E04.2 Nontoxic multinodular goiter (principal)
CPT/HCPCS: 76536